=== PATIENT | female | born 1945 | race Caucasian/White ===

== ENCOUNTER → 2016-12-20 | Outpatient (CLI) | payer MEDICARE, BC ==
[~2016-12-20] MED LIST: ACLI400A2 IH; ALBU0.63 NEB; ALPR1TAB6 PO; AMIO200T2 PO; AMLO5TAB2 PO; BENZ100C2 PO; CYCL10TA2 PO; ESOM40CA PO; GABA-586 PO; GADOBUTROL 10 MMOL/10 ML VIAL IV ONE; HYDR-2666 PO; HYDR200T5 PO; IPRA3AMP NEB; LEVO5TAB2 PO; LISI1TAB3 PO; METF-550 PO; ONDA4TAB10 PO; PHEN-373 PO; PROAIR HFA8.5 GM INH; RIVA1TAB PO; SERT50TA8 PO; SUCR1TAB PO; TAMS0.4C2 PO; ZOLP10TA4 PO
--- NOTE | 2016-12-20 14:51 | KCIC ---
BRAIN WO/W CONTRAST Indication: Reason For Study Reason: HX MENINGIOMA, INCREASE OF HEADACHES / Spl. Instructions: 8cc gadavist / History: COMPARISON: January 12, 2016 TECHNIQUE: Axial diffusion weighted imaging was obtained. Additional sagittal T1, axial T1, axial FLAIR, and axial T2 weighted imaging of the brain was also performed. Postcontrast T1 weighted imaging was also performed after intravenous administration of gadolinium based contrast. FINDINGS: Again noted is a dural-based homogeneously enhancing mass along the anterior sagittal falx. This has slightly enlarged measuring 2.4 x 1.9 centimeters compared with 2.2 x 1.9 centimeters on the previous exam from January 12, 2016. There are scattered foci of FLAIR signal hyperintensity in the periventricular white matter which are nonspecific but most likely related to sequelae of chronic small vessel ischemic disease. no abnormal intracranial enhancement. No evidence of acute intracranial hemorrhage. No restricted diffusion to indicate acute infarct. No extra-axial fluid collections. No midline shift or mass effect. Ventricular size is appropriate. Midline structures have a normal anatomic configuration. Pituitary gland and infundibulum are unremarkable. Basal cisterns are patent. Arterial flow voids at the skull base and major dural venous sinuses are maintained. Globes and orbits are unremarkable. Paranasal sinuses and mastoid air cells are clear. IMPRESSION: Minimal enlargement of the meningioma arising from the frontal sagittal falx. There is unchanged local mass effect but no vasogenic edema. Electronically signed by: Gucci Belcher (Dec 20, 2016 14:49:20)
== END | disposition home or self-care (01) ==
LOC: KCIC MRI 13:36
PROVIDERS: ATTEND Family Medicine
DX: R51 Headache (principal); Z86.011 Personal history of benign neoplasm of the brain
CPT/HCPCS: 70553; A9585

== ENCOUNTER → 2018-06-17 | Outpatient (CLI) | payer MEDICARE, BC ==
[~2018-06-17] MED LIST changes: -AMIO200T2 PO; +AMIO200T4 PO; -AMLO5TAB2 PO; +AMLO5TAB7 PO; +BENZ-8 PO; -BENZ100C2 PO; -GADOBUTROL 10 MMOL/10 ML VIAL IV ONE; -HYDR-2666 PO; +HYDR-2758 PO; -IPRA3AMP NEB; +IPRA3AMP29 NEB; -PHEN-373 PO; +PHEN-444 PO
--- NOTE | 2018-06-17 15:55 | KCIC ---
MR of the right shoulder Indication: Right shoulder pain. Fell and injured right shoulder 2 weeks ago. Crepitus. Technique: Standard multiplanar sequences are obtained. Findings: Artifact: No significant image degradation. Acromioclavicular joint: Degenerative changes with undersurface osteophytes. Rotator cuff: * Supraspinatus-infraspinatus tendon: Broad deep undersurface tearing of the supraspinatus and infraspinatus tendon, at least 90%. There is no evidence of complete through and through bursal side defect however. * Subscapularis tendon: Tendinosis with partial tearing * Muscle bulk: Mild atrophy and fatty infiltration. * Subacromial subdeltoid bursa: Small to moderate effusion. Fluid: Small glenohumeral effusion. Mild fluid in the subcoracoid bursa. Glenohumeral cartilage: No acute defect or advanced DJD. Labrum: Mild heterogeneous signal at the superior labrum compatible with degeneration. No convincing evidence of labral detachment or separation. Biceps tendon: Tendinosis, high-grade partial interstitial tearing. Bones: Small round bone lesion at the inferior glenoid, measures 8 mm, separate from the subchondral bone. Indeterminate. Small degenerative cysts at the greater tuberosity. Soft tissue: No acute findings. Impression: 1. Broad very deep undersurface tearing of the supraspinatus and infraspinatus tendon, without complete bursal surface violation. Partial subscapularis tendon tear. 2. High-grade biceps tendon interstitial tearing. 3. Small bone lesion at the inferior glenoid is indeterminate. Metastatic lesion or myeloma are possible if the patient is at risk. Whole-body bone scan could be helpful for further evaluation if indicated. Electronically signed by: Lino Chacko MD (06/17/2018 3:52 PM) [facility]
== END | disposition home or self-care (01) ==
LOC: KCIC MRI 13:35
PROVIDERS: ATTEND Nurse Practitioner Family
DX: M75.101 Unspecified rotator cuff tear or rupture of right shoulder, not specified as traumatic (principal); M19.011 Primary osteoarthritis, right shoulder; M25.711 Osteophyte, right shoulder
CPT/HCPCS: 73221

== ENCOUNTER 2021-10-04 14:49 | Emergency (ER) | payer OTHER, MEDICARE, BC ==
[~2021-10-04] VITALS: Ht 165.1 cm; Wt 86.0 kg
[~2021-10-04 14:49] MED LIST changes: -ACLI400A2 IH; +ACLI400A3 IH; +ALBU2.5V8 INH; -AMIO200T4 PO; +AMIO200T53 PO; +AMLO-186 PO; -AMLO5TAB7 PO; +CYCL10TA19 PO; -CYCL10TA2 PO; -GABA-586 PO; +GABA300C18 PO; -HYDR-2758 PO; +HYDR-2761 PO; -LISI1TAB3 PO; +LISI1TAB35 PO; +LISI30TA4 PO; -PROAIR HFA8.5 GM INH; +SERT-267 PO; -SERT50TA8 PO
[2021-10-04 15:07] VITALS: BP 172/89
[2021-10-04 15:13] LABS: BASO % 0 % (0-3); EOS # 0.1 x10^3/uL (0.0-0.7); EOS % 1 % (0-3); HEMATOCRIT 40.6 % (36.0-47.0); HEMOGLOBIN 13.8 g/dL (12.0-15.5); LYMPH # 1.3 x10^3/uL (1.0-4.8); LYMPH % 16 % (24-48); MEAN CORPUSCULAR HEMOGLOBIN 31 pg (25-35); MEAN CORPUSCULAR HGB CONC 34 g/dL (31-37); MEAN CORPUSCULAR VOLUME 91 fL (79-100); MONO # 0.4 x10^3/uL (0.0-1.1); MONO % 5 % (0-9); NEUT # 6.2 x10^3/uL (1.8-7.7); NEUT % 77 % (31-73); PLATELET COUNT 218 x10^3/uL (140-400); RED BLOOD COUNT 4.48 x10^6/uL (3.50-5.40); RED CELL DISTRIBUTION WIDTH 13.8 % (11.5-14.5)
[2021-10-04] MEDS ORDERED: IV NORMAL SALINE 500ML BAG 500 ML IV ONE (15:15)
[2021-10-04] MEDS ORDERED: fentaNYL PF VIAL 100 MCG/2 ML VIAL IVP ONE (15:15)
[2021-10-04 15:26] LABS: CALCIUM 8.6 mg/dL (8.5-10.1); CREATININE 0.7 mg/dL (0.6-1.0); GFR 81.6; POTASSIUM 3.7 mmol/L (3.5-5.1)
[2021-10-04 15:31] LABS: ALBUMIN 3.5 g/dL (3.4-5.0); ALBUMIN/GLOBULIN RATIO 0.7 (1.0-1.7); TOTAL BILIRUBIN 0.4 mg/dL (0.2-1.0); TOTAL PROTEIN 8.4 g/dL (6.4-8.2)
[2021-10-04] MEDS ORDERED: CONTRAST GIVEN. MC PRN (15:45)
[2021-10-04] MEDS ORDERED: IOHEXOL 300 MG/ML 100ML VIAL. IV ONE (15:45)
[2021-10-04] MEDS ORDERED: MORPHINE SULFATE 4 MG/ML INJ. IV SCH (17:00)
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
--- NOTE | 2021-10-04 19:55 | EKG ---
[facility] [address] [place] [address] Test Date: 2021-10-04 Test Time: 15:07:14 Pat Name: RICKY YU Department: Room: Gender: F Film Sorter: : 1945 Requested By: MILAGROS VELASQUEZ Order Number: [id number] Reading MD: Sourav Ashraf Measurements Intervals [place] Rate: 82 P: -3 MN: 142 QRS: -6 QRSD: 94 T: 41 QT: 380 QTc: 447 Interpretive Statements SINUS RHYTHM LEFTWARD AXIS Electronically Signed On 10-04-2021 19:22:37 [employer] OFFICER by Sourav Ashraf
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
== END 2021-10-04 19:05 | disposition short-term general hospital (02) ==
LOC: ER 14:49
DX: R07.2 Precordial pain (principal); G89.11 Acute pain due to trauma; I48.91 Unspecified atrial fibrillation; I10 Essential (primary) hypertension; E11.9 Type 2 diabetes mellitus without complications; K21.9 Gastro-esophageal reflux disease without esophagitis; Z87.891 Personal history of nicotine dependence; V49.49XA Driver injured in collision with other motor vehicles in traffic accident, initial encounter; Y92.488 Other paved roadways as the place of occurrence of the external cause; Y93.89 Activity, other specified; Y99.8 Other external cause status; Z88.1 Allergy status to other antibiotic agents; Z88.2 Allergy status to sulfonamides; Z88.4 Allergy status to anesthetic agent; Z88.8 Allergy status to other drugs, medicaments and biological substances
CPT/HCPCS: 36415; 70450; 71260; 72125; 74177; 80053; 84484; 85025; 86850; 86870; 86900; 86901; 93005; 96361; 96374; 96375; 99285; J2270; J3010; J7040; Q9967